=== PATIENT | female | born 1935 | race Caucasian/White ===

== ENCOUNTER 2017-04-24 00:23 | Inpatient (IN) | payer MEDICARE ==
[~2017-04-24] VITALS: Ht 157.5 cm; Wt 75.0 kg
[2017-04-24] MEDS ORDERED: LABETALOL 5MG/ML, 20ML IVPush STA (00:50)
[2017-04-24] MEDS ORDERED: MORPHINE SULFATE 4 MG/ML, 1ML ONE ×2 (00:52→02:16)
[2017-04-24] MEDS: MORPHINE SULFATE 4 MG/ML, 1ML IVPush PRN ×2 (00:55→02:17)
[2017-04-24] MEDS ORDERED: ONDANSETRON 2MG/ML, 2ML IVPush ONE (01:00)
[2017-04-24 01:08] LABS: BASOPHILS # (AUTO) 0.02 x10^3/uL (0-0.1); BASOPHILS % (AUTO) 0 % (0-1); EOSINOPHILS # (AUTO) 0.01 x10^3/uL (0-0.4); EOSINOPHILS % (AUTO) 0 % (1-7); LYMPHOCYTES # (AUTO) 1.31 x10^3/uL (1-3.4); LYMPHOCYTES % (AUTO) 23 % (22-44); MD NO; MEAN CORPUSCULAR HEMOGLOBIN 30.8 pg (27.0-34.8); MEAN CORPUSCULAR HGB CONC 33.1 g/dL (32.4-35.8); MEAN CORPUSCULAR VOLUME 93.1 fL (80-100); MEAN PLATELET VOLUME 7.5 fL (7.4-10.4); MONOCYTES # (AUTO) 0.32 x10^3/uL (0.2-0.8); MONOCYTES % (AUTO) 6 % (2-9); NEUTROPHILS # (AUTO) 3.95 x10^3/uL (1.8-6.8); NEUTROPHILS % (AUTO) 71 % (42-75); PLATELET COUNT 262 x10^3/uL (130-400); RED BLOOD COUNT 4.02 x10^6/uL (3.82-5.3); RED CELL DISTRIBUTION WIDTH 16.1 % (9.6-15.2)
[2017-04-24 01:15] LABS: ALANINE AMINOTRANSFERASE 12 U/L (12-78); ALBUMIN 2.8 g/dL (3.4-5.0); ANION GAP 14 mmol/L (5-15); CALCIUM 9.8 mg/dL (8.5-10.1); CHLORIDE 109 mmol/L (98-107); CREATININE 0.93 mg/dL (0.55-1.02)
[2017-04-24 01:20] LABS: ALKALINE PHOSPHATASE 56 U/L (45-117); BILIRUBIN,TOTAL 0.6 mg/dL (0.2-1.0); TOTAL PROTEIN 11.5 g/dL (6.4-8.2); TROPONIN I 0.029 ng/mL (0.000-0.045)
[2017-04-24 01:29] LABS: CULTURE INDICATED? YES; MICROSCOPIC INDICATED
[2017-04-24] MEDS ORDERED: CEFTRIAXONE PMX 1GM/50ML 50 ML ONE (02:07)
[2017-04-24] MEDS ORDERED: SODIUM CHLORIDE 0.9% 1,000 ML IV ONE (02:27)
[2017-04-24] MEDS ORDERED: MORPHINE SULFATE 4 MG/ML, 1ML IVPush PRN (02:30)
[2017-04-24] MEDS ORDERED: CEFTRIAXONE PMX 1GM/50ML 50 ML IV ONE (02:30)
[2017-04-24] MEDS ORDERED: ONDANSETRON 2MG/ML, 2ML IVPush PRN ×2 (02:30→05:30)
[2017-04-24] MEDS ORDERED: OXYB5TAB7 PO (02:37)
[2017-04-24] MEDS ORDERED: SIMV5TAB5 PO (02:37)
[2017-04-24] MEDS ORDERED: SODIUM CHLORIDE 0.9% 1,000 ML IV SCH (05:02)
[2017-04-24] MEDS ORDERED: ENALAPRILAT 1.25 MG/ML, 2ML IVPush PRN (05:30)
[2017-04-24] MEDS ORDERED: ONDANSETRON ODT 4 MG PO PRN (05:30)
[2017-04-24] MEDS ORDERED: LABETALOL 5MG/ML, 20ML IVPush PRN (05:30)
[2017-04-24] MEDS: morphine SULFATE 10 MG/ML, 1ML IVPush PRN ×2 (05:33→15:27)
[2017-04-24] MEDS: ENOXAPARIN 40 MG/0.4 ML SQ SCH (05:33)
[2017-04-24] MEDS ORDERED: OMNIPAQUE 350 MG/ML, 100ML BOTTLE ONE (05:38)
[2017-04-24 07:13] VITALS: BP 140/67
[2017-04-24] MEDS: SENNA/DOCUSATE TABLET PO SCH (08:19)
[2017-04-24] MEDS: HYDROcodone/APAP 5/325 TABLET PO PRN ×3 (08:19→21:16)
[2017-04-24 13:11] VITALS: BP 152/76
[2017-04-24 19:00] VITALS: BP 137/67
[2017-04-24] MEDS: SIMVASTATIN 10 MG TABLET PO SCH (21:16)
[2017-04-24] MEDS: METHOCARBAMOL 500 MG TABLET PO PRN (21:16)
[2017-04-24] MEDS: TRAZODONE 50MG TABLET PO PRN (21:16)
[2017-04-25 01:14] VITALS: BP 135/63
[2017-04-25] MEDS: HYDROcodone/APAP 5/325 TABLET PO PRN ×5 (01:37→22:02)
[2017-04-25] MEDS: CEFTRIAXONE 1,000 MG in SODIUM CHLORIDE 0.9% 50 ML IV SCH (01:42)
[2017-04-25] MEDS ORDERED: CEFTRIAXONE PMX 1GM/50ML 50 ML IV SCH (02:00)
[2017-04-25] MEDS: ENOXAPARIN 40 MG/0.4 ML SQ SCH (05:47)
[2017-04-25 06:52] VITALS: BP 133/61
[2017-04-25] MEDS: SENNA/DOCUSATE TABLET PO SCH (08:08)
[2017-04-25] MEDS: METHOCARBAMOL 500 MG TABLET PO PRN ×3 (08:08→22:53)
[2017-04-25] MEDS: DOCUSATE 100 MG CAPSULE PO PRN ×2 (09:36→22:22)
[2017-04-25] MEDS: POLYETHYLENE GLYCOL 17 GM PACKET PO PRN (09:36)
[2017-04-25 14:21] VITALS: BP 110/66
[2017-04-25 20:07] VITALS: BP 133/70
[2017-04-25] MEDS: SIMVASTATIN 10 MG TABLET PO SCH (22:01)
[2017-04-25] MEDS: TRAZODONE 50MG TABLET PO PRN (22:02)
[2017-04-26 02:28] VITALS: BP 134/66
[2017-04-26] MEDS: CEFTRIAXONE 1,000 MG in SODIUM CHLORIDE 0.9% 50 ML IV SCH (02:28)
[2017-04-26] MEDS: HYDROcodone/APAP 5/325 TABLET PO PRN ×2 (05:11→20:47)
[2017-04-26] MEDS: METHOCARBAMOL 500 MG TABLET PO PRN ×2 (05:12→20:46)
[2017-04-26] MEDS: ENOXAPARIN 40 MG/0.4 ML SQ SCH (05:12)
[2017-04-26 07:50] VITALS: BP 122/51
[2017-04-26] MEDS: SENNA/DOCUSATE TABLET PO SCH (08:25)
[2017-04-26] MEDS: POLYETHYLENE GLYCOL 17 GM PACKET PO PRN (08:25)
[2017-04-26] MEDS ORDERED: DOCU-131 PO (12:47)
[2017-04-26] MEDS ORDERED: METH500T7 PO (12:47)
[2017-04-26] MEDS ORDERED: SENN1TAB7 PO (12:47)
[2017-04-26] MEDS ORDERED: CEFD300C37 PO (12:47)
[2017-04-26] MEDS ORDERED: HYDR-3240 PO (12:47)
[2017-04-26] MEDS ORDERED: SIMV10TA3 PO (12:47)
[2017-04-26] MEDS ORDERED: TRAZ50TA18 PO (12:47)
[2017-04-26 12:48] VITALS: BP 122/62
[2017-04-26 20:19] VITALS: BP 138/76
[2017-04-26] MEDS: SIMVASTATIN 10 MG TABLET PO SCH (20:46)
[2017-04-27] MEDS: CEFTRIAXONE 1,000 MG in SODIUM CHLORIDE 0.9% 50 ML IV SCH (02:15)
[2017-04-27 03:08] VITALS: BP 135/79
[2017-04-27] MEDS: ENOXAPARIN 40 MG/0.4 ML SQ SCH (05:13)
[2017-04-27 07:26] VITALS: BP 146/81
[2017-04-27] MEDS ORDERED: OXYBUTYNIN CHLORIDE 5 MG TABLET PO SCH (09:00)
[2017-04-27] MEDS: SENNA/DOCUSATE TABLET PO SCH (11:19)
== END 2017-04-27 13:01 | DRG 542 ==
LOC: ED 02:37 → EDIP 03:02 → 4NOR 03:16
PROVIDERS: ADMIT Internal Medicine; ATTEND Internal Medicine
PROC: 0T9B70Z Drainage of Bladder with Drainage Device, Via Natural or Artificial Opening (ICD-10-PCS; principal; 2017-04-24)
DX: M48.56XA Collapsed vertebra, not elsewhere classified, lumbar region, initial encounter for fracture (principal); E43 Unspecified severe protein-calorie malnutrition; E86.0 Dehydration; I11.9 Hypertensive heart disease without heart failure; J98.11 Atelectasis; N30.90 Cystitis, unspecified without hematuria; E66.9 Obesity, unspecified; B96.20 Unspecified Escherichia coli [E. coli] as the cause of diseases classified elsewhere; E78.5 Hyperlipidemia, unspecified; R62.7 Adult failure to thrive; Z74.01 Bed confinement status; Z68.30 Body mass index [BMI] 30.0-30.9, adult
CPT/HCPCS: 36415; 71045; 72131; 74177; 80053; 81001; 84484; 85025; 87077; 87086; 87186; 96365; 96375; 96376; J0696; J1650; Q9967; J2270; J7030